=== PATIENT | female | born 1980 | race Caucasian/White ===

== ENCOUNTER 2022-08-10 10:06 | Day surgery (SDC) | payer BC ==
[2022-08-09 12:59] VITALS: BMI 20.3
[2022-08-10] MEDS ORDERED: Gabapentin 300 MG CAP ONE (10:28)
[2022-08-10] MEDS ORDERED: CeleCOXIB 100 MG CAP ONE (10:28)
[2022-08-10] MEDS ORDERED: Famotidine/PF 20 mg/2ml Vial ONE (10:29)
[2022-08-10 10:54] LABS: Mean Corpuscular HGB CONC 33.1 g/dL (32.0-36.0); Mean Corpuscular Hemoglobin 28.1 pg (27.0-33.0); Mean Platelet Volume 10.8 fl (7.4-10.4); Platelet Count 174 10x3/uL (150-450); Red Blood Cell (RBC) Count 4.27 10x6/uL (3.90-5.03); White Blood Cell (WBC) Count 4.9 10x3/uL (3.5-10.5)
[2022-08-10 11:15] LABS: BHCG - Serum Negative (NEGATIVE); Pregs Control Background? CLEAR/WHITE (CLR/WHITE); Pregs Control Bar Appear? YES (CONTROL BAR)
[2022-08-10] MEDS ORDERED: Scopolamine 1.5 mg/72 hour Patch ONE (11:37)
[2022-08-10] MEDS ORDERED: Midazolam HCl 2 mg/2 ml Vial ONE (11:41)
[2022-08-10] MEDS ORDERED: Fentanyl 100 MCG/2 ML VIAL ONE ×2 (12:04→14:58)
[2022-08-10] MEDS ORDERED: PROPOFOL 20 ML ONE (12:04)
[2022-08-10] MEDS ORDERED: Bupivacaine HCl 0.5%/Epinephrine 1:200,000/PF 30 ml Vial ONE (12:53)
[2022-08-10] MEDS ORDERED: Promethazine HCl 25 MG/ML VIAL ONE (12:57)
[2022-08-10] MEDS ORDERED: CEFAZOLIN 2 GM VIAL ONE (13:08)
[2022-08-10] MEDS ORDERED: Glycopyrrolate 0.2 MG/ML 5 ML SYRINGE ONE (14:57)
[2022-08-10] MEDS ORDERED: Meperidine HCl/PF 25 MG/ML VIAL ONE (15:38)
[2022-08-10] MEDS ORDERED: Ondansetron PF 4 MG/2 ML Vial ONE (17:57)
== END 2022-08-10 19:20 | disposition home or self-care (01) ==
LOC: CSHSDC 10:06
PROVIDERS: ATTEND Student in an Organized Health Care Education/Training Program
PROC: 0UT94ZZ Resection of Uterus, Percutaneous Endoscopic Approach (ICD-10-PCS; principal; 2022-08-10)
PROC: 0UB04ZZ Excision of Right Ovary, Percutaneous Endoscopic Approach (ICD-10-PCS; principal; 2022-08-10)
PROC: 0UT74ZZ Resection of Bilateral Fallopian Tubes, Percutaneous Endoscopic Approach (ICD-10-PCS; principal; 2022-08-10)
DX: N80.03 Adenomyosis of the uterus (principal); D27.0 Benign neoplasm of right ovary; N93.9 Abnormal uterine and vaginal bleeding, unspecified; N88.8 Other specified noninflammatory disorders of cervix uteri; N72 Inflammatory disease of cervix uteri; Z79.899 Other long term (current) drug therapy
CPT/HCPCS: 36415; 84703; 85027; 86304; 86850; 86900; 86901; 88307; C1889; J2175; J2250; J2405; J2550; J2704; J3010; S0028